=== PATIENT | male | born 1940 | race Caucasian/White ===

== ENCOUNTER 2018-06-28 11:33 | Emergency (ER) | payer MEDICARE, OTHER ==
[~2018-06-28] VITALS: Ht 182.9 cm; Wt 96.4 kg
[~2018-06-28 11:33] MED LIST: CARB1CAP3 PO; FLO0.4C PO; FORM12CA IH; LANS30CA37 PO; MONT10TA21; PRED5TAB PO; SALI1KIT9; TRIA1CAP2 PO; TRIH2TAB3 PO; WALKERFR; [UNRECOGNIZED DRUG - OTHER]; [UNRECOGNIZED DRUG - OTHER]
[2018-06-28 11:36] VITALS: BP 130/68
[2018-06-28 12:16] LABS: CLARITY,URINE CLEAR (Clear); COLOR,URINE YELLOW (Yellow); GLUCOSE, URINE NEGATIVE (Neg); KETONES,URINE NEGATIVE (Neg); LEUKOCYTE ESTERASE ,URINE NEGATIVE (Neg); NITRITES, URINE NEGATIVE (Neg); OCCULT BLOOD,URINE NEGATIVE (Neg); PH,URINE 7.5 (4.8-8.0); PROTEIN,URINE NEGATIVE (Neg); UROBILINOGEN,URINE 0.2 E.U/dL (0.2-1.0)
[2018-06-28 12:19] LABS: UA COLLECTION TYPE VOIDED
[2018-06-28] MEDS ORDERED: FLO0.4C PO (13:03)
== END 2018-06-28 13:13 | disposition home or self-care (01) ==
LOC: ER 11:33
DX: R30.0 Dysuria (principal); R32 Unspecified urinary incontinence; E78.00 Pure hypercholesterolemia, unspecified; I10 Essential (primary) hypertension; E11.9 Type 2 diabetes mellitus without complications; Z79.899 Other long term (current) drug therapy
CPT/HCPCS: 81003; 99284